=== PATIENT | female | born 2005 | race Caucasian/White ===

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

== ENCOUNTER 2024-07-12 07:30 | Emergency (ER) | payer OTHER ==
[~2024-07-12] VITALS: Ht 154.9 cm; Wt 45.5 kg
[~2024-07-12 07:30] MED LIST: ONDA-104 PO
[2024-07-12 07:35] VITALS: TEMP 99.3
[2024-07-12] MEDS: PYRIDOXINE HCL 50 MG TABLET PO ONE (08:16)
[2024-07-12 08:32] LABS: BASOPHILS % (AUTO) 0.3 % (0.0-2.0); EOSINOPHILS % (AUTO) 0.5 % (1.0-6.0); HEMATOCRIT 40.2 % (36-46); HEMOGLOBIN 13.3 g/dL (12.0-16.0); LYMPHOCYTES # (AUTO) 1.3 K/uL (1.0-4.8); LYMPHOCYTES % (AUTO) 17.4 % (22.0-44.0); MEAN CORPUSCULAR HEMOGLOBIN 26.5 pg (26.0-34.0); MEAN CORPUSCULAR HGB CONC 33.1 G/dL (31.0-37.0); MEAN CORPUSCULAR VOLUME 80 fL (80-100); MONOCYTES # (AUTO) 0.2 K/uL (0.1-1.0); MONOCYTES % (AUTO) 2.5 % (2.0-9.0); NEUTROPHILS # (AUTO) 5.9 K/uL (1.8-7.7); NEUTROPHILS % (AUTO) 79.3 % (40.0-70.0); PLATELET COUNT (AUTO) 269 K/uL (150-450); RED BLOOD CELL COUNT(AUTO) 5.04 MIL/uL (4.00-5.20); RED CELL DISTRIBUTION WIDTH 16.4 % (11.5-14.5); WHITE BLOOD COUNT (AUTO) 7.5 K/uL (4.5-11.0)
[2024-07-12 08:40] LABS: ANION GAP 10 mmol/L (8-16); CALCIUM, TOTAL 9.7 mg/dL (8.8-10.5); CARBON DIOXIDE 19 mmol/L (22-29); CHLORIDE 101 mmol/L (98-107); CREATININE 0.61 mg/dL (0.60-1.30); GLOMERULAR FILTR. RATE CALC > 60 mL/min (>60); GLUCOSE,RANDOM 99 mg/dL (70-110); POTASSIUM 4.1 mmol/L (3.5-5.1); SODIUM SERUM 130 mmol/L (136-145); UREA NITROGEN, BLOOD 14 mg/dL (7-18)
[2024-07-12 09:11] LABS: HCG,QUANTITATIVE 36717 mIU/mL (0-6)
[2024-07-12] MEDS: PROMETHAZINE HCL 25 MG TABLET PO ONE (09:56)
[2024-07-12] MEDS: SODIUM CHLORIDE 0.9% 1,000 ML IV ONE (09:57)
[2024-07-12] MEDS: DOXYLAMINE SUCCINATE 25 MG TABLET PO ONE (10:20)
[2024-07-12 10:53] LABS: APPEARANCE,URINE CLEAR (CLEAR); COLOR,URINE LIGHT ORANGE (YELLOW); GLUCOSE, URINE (UA) NEGATIVE (NEGATIVE); KETONES,URINE =>150 mg/dL (NEGATIVE); LEUKOCYTE ESTERASE ,URINE NEGATIVE (NEGATIVE); NITRATE,URINE NEGATIVE (NEGATIVE); OCCULT BLOOD,URINE NEGATIVE (NEGATIVE); PH,URINE 6.5 (5.0-8.0); PROTEIN,URINE 30-70 mg/dL (NEGATIVE)
[2024-07-12 11:00] LABS: BILIRUBIN,URINE SMALL (NEGATIVE)
[2024-07-12] MEDS ORDERED: DOXY25TA PO (11:52)
[2024-07-12] MEDS ORDERED: PYRI-9 PO (11:52)
[2024-07-12 12:16] VITALS: BP 110/55; PULSE 80; RESP 16; O2SAT 100
[2024-07-12] MEDS: DEXTROSE 5%-LACTATED RINGERS 1,000 ML IV ONE (12:26)
== END 2024-07-12 12:26 | disposition home or self-care (01) ==
LOC: EMS 07:32
DX: O21.9 Vomiting of pregnancy, unspecified (principal); Z3A.01 Less than 8 weeks gestation of pregnancy
CPT/HCPCS: 99284; 96360; 80048; 81003; 84702; 85025; 36415; J7030